=== PATIENT | female | born 1980 | race Caucasian/White ===

== ENCOUNTER 2018-10-22 07:00 | Outpatient (RCR) | payer OTHER, SELFPAY ==
--- NOTE | 2018-09-24 11:20 | HMH.OTOPEV ---
OT Inpatient Evaluation Rehab OT Outpatient Eval Start: 09/24/18 10:59 Freq: Status: Active Protocol: Document 09/24/18 11:00 TFRY (Rec: 09/24/18 11:19 TFRY [id number]) Electronically Signed By Lilliana Rondon OT 09/24/18 11:00 Outpatient Therapy Subjective History Subjective History This is a 38 year old right handed female referred to occupational therapy for left shoulder pain. Patient reports that she has had pain in her left shoulder for the last 6 to 7 months. Patient reported that it has continued to get worse. She is unable to recall doing anything to her shoulder. Chief Complaint Pain Symptom Type Ache,Dull,Burning Symptoms Relieved By Rest/Positioning Symptoms Aggravated By Physical Activity Prior Functional Limitations None Current Functional Limitations Lifting,Housework,Dressing, Sleeping Symptom Description Constant but Variable Level of pain today (0-10) 2 Pain scale - at its best (0-10) 2 Pain scale - at its worst (0-10) 6 Shoulder/Elbow Eval Shoulder Objective Measurements Palpation Tenderness tenderness shoulder exam standard left tenderness over the bicipital tendon left shoulder exam standard Shoulder Palpation Findings Tenderness Shoulder ROM Left Shoulder ROM Limitations Pain Shoulder Abduction Active Range of 65 Motion (degrees) Shoulder Abduction Passive Range of 65 Motion (degrees) Shoulder Flexion Active Range of Motion 75 (degrees) Query Text: Shoulder Flexion Passive Range of Motion 110 (degrees) Shoulder External Rotation Active Range WFL of Motion (degrees) Shoulder External Rotation Passive Range WFL of Motion (degrees) Shoulder Internal Rotation Active Range 25 of Motion (degrees) Shoulder Internal Rotation Passive Range 60 of Motion (degrees) Shoulder Extension Active Range of 30 Motion (degrees) Shoulder Extension Passive Range of 40 Motion (degrees) pain with active ROM shoulder exam left standard pain with passive ROM shoulder exam left standard decreased ROM shoulder exam standard left Shoulder MMT Shoulder Abduction Strength Grade 3- Fair- Shoulder Extension Strength Grade 3 Fair Shoulder Flexion Strength Grade 3- Fair- Shoulder Horizontal Abduction Strengt
== END 2018-11-05 09:04 | disposition home or self-care (01) ==
LOC: OT 07:00
PROVIDERS: Visit Provider Nurse Practitioner Family
DX: M75.102 Unspecified rotator cuff tear or rupture of left shoulder, not specified as traumatic (principal)
CPT/HCPCS: 97014; 97033; 97110; 97140; 97165; G0283

== ENCOUNTER → 2020-12-23 09:37 | Outpatient (CLI) | payer BC, SELFPAY ==
[2020-12-23 11:31] LABS: Alanine Aminotransferase 23 U/L (12-78); Albumin Level 4.1 g/dl (3.5-5.0); Albumin/Globulin Ratio 1.2 (1.1-1.8); Alkaline Phosphatase 72 U/L (38-126); Anion Gap 15.3 mEq/L (5-15); Aspartate Amino Transferase 25 U/L (14-36); Bilirubin,Total 0.3 mg/dl (0.2-1.3); Blood Urea Nitrogen 11 mg/dl (7-17); Calcium 9.3 mg/dl (8.4-10.2); Carbon Dioxide 26 mmol/L (22.0-30.0); Chloride 101 mmol/L (98-107); Estimated Glomerular Filt Rate 70 ml/min (>60); GFR (African American) 84 ML/MIN (>60); Globulin 3.3 g/dL (1.3-3.2); Glucose 94 mg/dl (74-100); Potassium 5.3 mmoL/L (3.5-5.1); Sodium 137 mmol/L (136-145); Total Protein,Serum 7.4 g/dl (6.3-8.2)
[2020-12-23 12:03] LABS: Thyroid Stimulating Hormone 0.93 uIU/mL (0.465-4.68)
== END ==
PROVIDERS: Visit Provider Internal Medicine Adolescent Medicine
DX: E03.9 Hypothyroidism, unspecified (principal); I10 Essential (primary) hypertension
CPT/HCPCS: 80053; 84443